=== PATIENT | male | born 1990 | race African-American/Black ===

== ENCOUNTER 2022-04-09 08:09 | Emergency (ER) | payer MEDICAID, OTHER ==
[~2022-04-09] VITALS: Ht 167.6 cm; Wt 77.0 kg
[2022-04-09] MEDS ORDERED: LIDOCAINE 5% PATCH TOP SCH (09:15)
[2022-04-09] MEDS ORDERED: ACETAMINOPHEN 325MG TABLET PO ONE (09:15)
[2022-04-09] MEDS ORDERED: NAP5EC MT (10:19)
[2022-04-09 10:32] VITALS: BP 126/86
== END 2022-04-09 10:32 | disposition home or self-care (01) ==
LOC: ER 08:09
DX: S00.83XA Contusion of other part of head, initial encounter (principal); S20.212A Contusion of left front wall of thorax, initial encounter; Y08.89XA Assault by other specified means, initial encounter; Y93.89 Activity, other specified; Y92.9 Unspecified place or not applicable
CPT/HCPCS: 70486; 71101; 99284

== ENCOUNTER 2024-03-12 23:06 | Emergency (ER) | payer MEDICAID ==
[~2024-03-12] VITALS: Ht 188 cm; Wt 99.0 kg
[~2024-03-12 23:06] MED LIST: NAP5EC MT
[2024-03-12 23:19] VITALS: TEMP 98; O2SAT 99
[2024-03-13] MEDS ORDERED: IBUPROFEN 600MG TABLET PO ONE
[2024-03-13] MEDS ORDERED: METH-653 MT (00:01)
[2024-03-13 00:34] VITALS: BP 115/69; PULSE 62; RESP 14
== END 2024-03-13 00:36 | disposition home or self-care (01) ==
LOC: ER 23:06
DX: M54.6 Pain in thoracic spine (principal); M54.10 Radiculopathy, site unspecified
CPT/HCPCS: 99283

== ENCOUNTER 2025-06-18 09:27 | Emergency (ER) | payer OTHER ==
[~2025-06-18] VITALS: Ht 188 cm; Wt 93.0 kg
[~2025-06-18 09:27] MED LIST changes: +METH-653 MT; -NAP5EC MT; +NAPR-1495 MT
[2025-06-18 09:28] VITALS: O2SAT 99
[2025-06-18 10:39] LABS: CLARITY URINE CLEAR (CLEAR); COLOR URINE YELLOW (YELLOW); GLUCOSE URINE NEGATIVE (NEGATIVE); KETONES URINE TRACE (NEGATIVE); LEUKOCYTE ESTERASE URINE 1+ (NEGATIVE); NITRITE URINE NEGATIVE (NEGATIVE); OCCULT BLOOD URINE NEGATIVE (NEGATIVE); PH URINE 6.0 (4.5-8.0); PROTEIN URINE NEGATIVE (NEGATIVE); SPECIFIC GRAVITY URINE 1.022 (1.005-1.030); UROBILINOGEN URINE 1.0 E.U./dL (0.2-1.0)
[2025-06-18] MEDS: CEFTRIAXONE SODIUM 500MG VIAL IM ONE (10:41)
[2025-06-18] MEDS: DOXYCYCLINE HYCLATE 100MG CAPSULE PO ONE (10:41)
[2025-06-18 11:03] LABS: BACTERIA URINE NONE SEEN; RBC URINE 0-2 /hpf (0-2); SQUAMOUS EPITHELIAL CELL URINE RARE /lpf (RARE/1+); YEAST URINE NONE SEEN
[2025-06-18 11:10] VITALS: BP 111/68; PULSE 58; RESP 14; TEMP 36.9; O2SAT 99
[2025-06-19 06:12] LABS: HSV TYPE 2 SPECIFIC AB IGG Reactive (Non Reactive)
[2025-06-19 15:10] LABS: CHLAMYDIA TRACHOMATIS NAA Negative (Negative); NEISSERIA GONORRHOEAE NAA Negative (Negative)
== END 2025-06-18 11:14 | disposition home or self-care (01) ==
LOC: ER 09:56
DX: Z11.3 Encounter for screening for infections with a predominantly sexual mode of transmission (principal); J45.909 Unspecified asthma, uncomplicated; Z79.899 Other long term (current) drug therapy
CPT/HCPCS: 86695; 86696; 87491; 87591; 81003; 86592; 36415; 96372; 99283; J0696; Z7610